=== PATIENT | female | born 1995 | race Two or more races ===

== ENCOUNTER 2024-01-08 11:06 | Emergency (ER) | payer MEDICAID ==
[~2024-01-08] VITALS: Ht 157.5 cm; Wt 61.2 kg
[2024-01-08 11:11] VITALS: TEMP 98.6
[2024-01-08] MEDS ORDERED: NALO4SPR BNOSTRILS (12:46)
[2024-01-08 13:58] VITALS: BP 109/72; O2SAT 100
== END 2024-01-08 13:58 | disposition home or self-care (01) ==
LOC: ER 11:29
DX: T40.601A Poisoning by unspecified narcotics, accidental (unintentional), initial encounter (principal); R41.82 Altered mental status, unspecified; Y92.89 Other specified places as the place of occurrence of the external cause